=== PATIENT | female | born 1975 | race Caucasian/White ===

== ENCOUNTER 2017-05-30 13:50 | Emergency (ER) | payer MEDICARE, MEDICAID ==
[2017-05-30 14:44] VITALS: BP 124/83
--- NOTE | 2017-05-30 15:47 | UC ---
Laceration HPI - HPI Summary HPI Summary: FALL ON RAILROAD TRACKS AT 1145AM. HIT FOREHEAD. NO LOC. NO N/V. NO NECK PAIN. HOWEVER, LEFT SIDED NOSE BLEED. (NO FACIAL TENDERNESS) UNDER RIGHT EYE BRUISING DEVELOPING. 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 Hx Last Menstrual Period: unknown Laceration Location: Face - FOREHEAD Mechanism Of Injury: Blunt Trauma Onset/Duration: Sudden Onset, Lasting Hours Severity: Mild - Allergies/Home Medications Allergies/Adverse Reactions: Allergies Allergy/AdvReac Type Severity Reaction Status Date / Time Cephalexin Allergy Hives Verified 05/30/17 14:44 Ciprofloxacin [From Cipro] Allergy Swelling Verified 05/30/17 14:44 Home Medications: Home Medications Calcium 500 mg PO DAILY 05/30/17 [History Confirmed 05/30/17] Drospirenone-Ethinyl Estradiol [Ocella 3-0.03 mg] 1 tab PO DAILY 05/30/17 [ History Confirmed 05/30/17] Ferrous Sulfate [Fe Tabs] 325 mg PO DAILY 05/30/17 [History Confirmed 05/30/17] Multiple Vitamins W/ Minerals [Multivitamin Adults] 1 tab PO DAILY 05/30/17 [ History Confirmed 05/30/17] Omeprazole CAP* [Prilosec CAP* 20 MG] 20 mg PO DAILY 05/30/17 [History Confirmed 05/30/17] Venlafaxine CAP (NF) [Effexor CAP (NF)] 75 mg PO DAILY 05/30/17 [History Confirmed 05/30/17] Venlafaxine ER (NF) [Effexor ER (NF)] 150 mg PO DAILY 05/30/17 [History Confirmed 05/30/17] PMH/Surg Hx/FS Hx/Imm Hx Previously Healthy: Yes - Surgical History Surgical History: Yes Surgery Procedure, Year, and Place: Elbow L surgery, umbilical hernia repair - Family History Known Family History: Negative: Blood Disorder - Social History Occupation: Employed Full-time Lives: With Family Alcohol Use: Occasionally Substance Use Type: None Smoking Status (MU): Never Smoked Tobacco - Immunization History Most Recent Tetanus Shot: unknown Review of Systems Constitutional: Negative Skin: Bruising - INFERIOR RIGHT EYE LID Eyes: Negative ENT: Nasal Discharge Respiratory: Negative Cardiovascular: Negative Gastrointestinal: Negative Genitourinary: Negative Motor: Negative Neurovascular: Negative Musculoskeletal: Negative Neurological: Negative Psychological: Negative Is Patient Immunocompromised?: No All Other Systems Reviewed And Are Negative: Yes Physical Exam Triage Information Reviewed: Yes Appearance: Well-Appearing, No Pain Distress, Well-Nourished Vital Signs: Initial Vital Signs Temp 97.9 F 05/30/17 14:37 Pulse 84 05/30/17 14:37 Resp 16 05/30/17 14:37 BP 124/83 05/30/17 14:37 Pulse Ox 100 05/30/17 14:37 Vital Signs Reviewed: Yes Eyes: Positive: Conjunctiva Clear, Other: - POSSIBLE NYSTAGMUS ENT: Positive: Hearing grossly normal, Pharynx normal, TMs normal, Other: - DRY BLOOD LEFT NARES Dental Exam: Normal Neck exam: Normal Neck: Positive: Supple, Nontender Respiratory Exam: Normal Respiratory: Positive: Chest non-tender, Lungs clear, Normal breath sounds, No respiratory distress Cardiovascular Exam: Normal Cardiovascular: Positive: RRR, No Murmur, Pulses Normal Abdominal Exam: Normal Musculoskeletal Exam: Normal Musculoskeletal: Positive: Strength Intact, ROM Intact Neurological: Positive: Other: - POSSIBLE NYSTAGMUS WITH EYE TRACKING. OTHER CN INTACT Psychological Exam: Normal Skin Exam: Normal Laceration Course/Dx - Differential Dx - Laceration/Wound Differental Diagnoses: Laceration, Other - FOREHEAD LACERATION NOT PRESENTLY CLOSED; HEAD TRAUMA Provider Diagnoses: FOREHEAD LACERATION NOT PRESENTLY CLOSED; HEAD TRAUMA - Physician Notification/Consults Discussed Patient Care With: Shirley Babin Instructed by Provider To: Will See In ED Discharge - Discharge Plan Condition: Stable Disposition: OTHER Discharge Disposition Comment: ADVISED TO GO TO ED, REFUSED AMBULANCE Referrals: [facility] REFERRAL [Outside] No Primary Care Phys,NOPCP [Primary Care Provider] - Additional Instructions: YOU HAVE REFUSED THE OFFER OF AMBULANCE TRANSPORT AND HAVE ELECTED TO GO TO THE EMERGENCY DEPARTMENT BY PRIVATE CAR. YOU ARE ADVISED TO PROCEED SAFELY, BUT DIRECTLY TO THE EMERGENCY DEPARTMENT FOR CONTINUED EVALUATION.
== END 2017-05-30 15:51 ==
LOC: UCEAST 13:50
DX: S01.81XA Laceration without foreign body of other part of head, initial encounter (principal); W01.198A Fall on same level from slipping, tripping and stumbling with subsequent striking against other object, initial encounter; Y93.9 Activity, unspecified; Y92.9 Unspecified place or not applicable; Y99.9 Unspecified external cause status; Z88.1 Allergy status to other antibiotic agents
CPT/HCPCS: 99201; 99202; G0463

== ENCOUNTER 2017-05-30 16:05 | Emergency (ER) | payer MEDICARE, MEDICAID ==
[2017-05-30] MEDS ORDERED: Tetan/Diph/Pertus SYR(Tdap)* 0.5 ML SYR(BOOSTRIX) use SYR IM ONE (17:34)
[2017-05-30 18:08] VITALS: BP 145/82
--- NOTE | 2017-06-02 13:36 | ED ---
Yoon Medina Edward, scribed for Sherman Samano MD on 05/30/17 at 1718 . Adult Trauma - HPI Summary HPI Summary: 41 y/o female presents to the ED c/o laceration at her forehead s/p fall earlier today at around 16:20. 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 The symptoms are not aggravated with anything. Pt states she was walking and her ankle turned; [place]. Pt denies lower extremity pain. Pt denies LOC. - History of Current Complaint Chief Complaint: EDLacSutureRecheck Stated Complaint: FALL , HEAD INJURY Time Seen by Provider: 05/30/17 17:10 Hx Obtained From: Patient Hx Last Menstrual Period: unknown Mechanism of Injury: Fall Loss of Consciousness: no loss of consciousness Onset/Duration: Started Hours Ago Onset of Pain: Immediate Location: Head - Forehead Aggravating Factor(s): Nothing Alleviating Factor(s): Ice, Other - bandage Associated Signs & Symptoms: Positive: Other: - Denies pain in legs. Negative: Loss of Consciousness - Allergy/Home Medications Allergies/Adverse Reactions: Allergies Allergy/AdvReac Type Severity Reaction Status Date / Time Cephalexin Allergy Hives Verified 05/30/17 14:44 Ciprofloxacin [From Cipro] Allergy Swelling Verified 05/30/17 14:44 Home Medications: Home Medications Polyethylene Glycol 3350* [Miralax*] 17 gm PO DAILY 05/30/17 [History Confirmed 05/30/17] PMH/Surg Hx/FS Hx/Imm Hx Previously Healthy: No - Surgical History Surgery Procedure, Year, and Place: Elbow L surgery, umbilical hernia repair Infectious Disease History: No Infectious Disease History: Denies: Traveled Outside the [place] in Last 30 Days - Family History Known Family History: Negative: Blood Disorder - Social History Alcohol Use: Occasionally Substance Use Type: Reports: None Smoking Status (MU): Never Smoked Tobacco Review of Systems Constitutional: Negative Eyes: Negative ENT: Negative Cardiovascular: Negative Respiratory: Negative Gastrointestinal: Negative Genitourinary: Negative Musculoskeletal: Negative Skin: Other - laceration @ forehead, abrasions at lower extremities Positive: Bruising - at legs Neurological: Negative Negative: Syncope Psychological: Normal All Other Systems Reviewed And Are Negative: Yes Physical Exam - Summary Physical Exam Summary: VITAL SIGNS: Reviewed. GENERAL: Patient is a well-developed and nourished female who is lying comfortable in the stretcher. Patient is not in any acute respiratory distress. HEAD AND FACE: 0.5 cm laceration @ forehead. No ecchymosis, hematomas or skull depressions. No sinus tenderness. EYES: PERRLA, EOMI x 2, No injected conjunctiva, no nystagmus. EARS: Hearing grossly intact. Ear canals and tympanic membranes are within normal limits. MOUTH: Oropharynx within normal limits. NECK: Supple, trachea is midline, no adenopathy, no JVD, no carotid bruit, no c- spine tenderness, neck with full ROM. CHEST: Symmetric, no tenderness at palpation LUNGS: Clear to auscultation bilaterally. No wheezing or crackles. CVS: Regular rate and rhythm, S1 and S2 present, no murmurs or gallops appreciated. ABDOMEN: Soft, non-tender. No signs of distention. No rebound no guarding, and no masses palpated. Bowel sounds are normal. EXTREMITIES: 2 abrasions @ lower extremities. Lower extremities are also black and blue. NEURO: Alert and oriented x 3. No acute neurological deficits. Speech is normal and follows commands. SKIN: Dry and warm Triage Information Reviewed: Yes Vital Signs On Initial Exam: Initial Vitals Temp Pulse Resp BP Pulse Ox 98.1 F 97 20 128/85 100 05/30/17 16:18 05/30/17 16:18 05/30/17 16:18 05/30/17 16:18 05/30/17 16:18 Vital Signs Reviewed: Yes - [place] Coma Scale Coma Scale Total: 15 Procedures - Laceration/Wound Repair 1 Location: head - Forehead Description: Linear Anesthesia: Lido, Epi Length, Depth and Shape: 0.5 cm Suture Type: Nylon - 5-0 Number of Sutures: 2 Diagnostics - Vital Signs Vital Signs Temp Pulse Resp BP Pulse Ox 05/30/17 16:18 98.1 F 97 20 128/85 100 - Laboratory Lab Statement: Any lab studies that have been ordered have been reviewed, and results considered in the medical decision making process. Adult Trauma Course/Dx - Course Assessment/Plan: 41 y/o female presents to the ED c/o laceration at her forehead s/p fall earlier today at around 16:20. 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 The symptoms are not aggravated with anything. Pt states she was walking and her ankle turned; [place]. Pt denies lower extremity pain. Pt denies LOC. In the ED course the pt came in walking to the room without any deficit. Lacerations were repaired without any complications. Neurological exam before the d/c was completely intact. Therefore I believe pt does not need head CDT. PT denies LOC, ZUNIGA, visual changes , weakness or dizziness. I discussed benefits and risks of head CT with the pt and her friend and they decided not to continue with a head CT. The pt was given Boostrix (tetanus booster) and will be d/c home with f/u with PCP. The pt is hemodynamically stable, A&Ox3. - Diagnoses Provider Diagnoses: Head contusion, Laceration Discharge - Discharge Plan Condition: Stable Disposition: HOME Patient Education Materials: Laceration (ED), Contusion in Adults (ED), Care For Your Stitches (ED) Referrals: Non Staff,Doctor [Primary Care Provider] - 3 Days (PLEASE F/U IN 2-3 DAYS) The documentation as recorded by the Yoon cox Edward accurately reflects the service I personally performed and the decisions made by me, Sherman Samano MD.
== END 2017-05-30 18:08 | disposition home or self-care (01) ==
LOC: ED 16:05
DX: S01.81XA Laceration without foreign body of other part of head, initial encounter (principal); S80.11XA Contusion of right lower leg, initial encounter; S80.12XA Contusion of left lower leg, initial encounter; W19.XXXA Unspecified fall, initial encounter; Y93.01 Activity, walking, marching and hiking; Y92.85 Railroad track as the place of occurrence of the external cause; Z23 Encounter for immunization; Z88.1 Allergy status to other antibiotic agents
CPT/HCPCS: 12011; 90471; 90715; 99281